=== PATIENT | female | born 1990 | race Two or more races ===

== ENCOUNTER 2019-04-26 07:34 | Emergency (ER) | payer SELFPAY ==
[~2019-04-26] VITALS: Ht 157.5 cm; Wt 71.2 kg
[2019-04-26 07:44] VITALS: BP 132/84
== END 2019-04-26 09:26 | disposition home or self-care (01) ==
LOC: ER 07:39
DX: N76.0 Acute vaginitis (principal); Z88.6 Allergy status to analgesic agent